=== PATIENT | female | born 1985 | race Caucasian/White ===

== ENCOUNTER 2023-12-10 13:59 | Emergency (ER) | payer BC ==
[2023-12-10 14:42] VITALS: BP 138/88; PULSE 94; RESP 18; TEMP 97.5; BMI 27.3
[2023-12-10] MEDS: SODIUM CHLORIDE 0.9% 500 ML INFUS.BAG IV ONE (15:44)
[2023-12-10 15:48] LABS: BASO % 0.3 % (0-2.0); EOS % 0.6 % (0-4.5); HEMATOCRIT 42.3 % (32.4-45.2); HEMOGLOBIN 14.7 GM/dL (10.7-15.3); LYMPH % 7.7 % (8-40); MCH 32.2 pg (25.7-33.7); MCHC 34.7 g/dl (32.0-36.0); MEAN CELL VOLUME 92.8 fl (80-96); MEAN PLT VOLUME 8.5 fl (7.5-11.1); MONO % 4.6 % (3.8-10.2); NEUT % 86.8 % (42.8-82.8); PLATELET COUNT 248 10^3/uL (134-434); RBC 4.56 M/mm3 (3.60-5.2); RDW 12.6 % (11.6-15.6); WHITE BLOOD COUNT 11.6 K/mm3 (4.0-10.0)
[2023-12-10 15:51] LABS: PH,URINE 7.5 (5.0-8.0); URINE APPEARANCE CLEAR; URINE BILIRUBIN NEGATIVE (NEGATIVE); URINE COLOR YELLOW; URINE GLUCOSE (UA) NEGATIVE (NEGATIVE); URINE KETONE NEGATIVE (NEGATIVE); URINE LEUK ESTERASE NEGATIVE (NEGATIVE); URINE NITRITE NEGATIVE (NEGATIVE); URINE PROTEIN NEGATIVE (NEGATIVE); URINE UROBILINOGEN 0.2 mg/dL (0.2-1.0)
[2023-12-10 15:54] LABS: HCG,QUALITATIVE URINE Negative
[2023-12-10 15:55] LABS: INR 1.03 (0.83-1.09); PROTHROMBIN TIME (PATIENT) 11.6 SEC (9.7-13.0)
[2023-12-10 15:57] LABS: ACTIVATED PTT 36.4 SECONDS (25.2-36.5)
[2023-12-10 16:12] LABS: POTASSIUM 3.9 mmol/L (3.5-5.1)
[2023-12-10 16:14] LABS: CALCIUM 9.4 mg/dL (8.5-10.1)
[2023-12-10 16:15] LABS: ALBUMIN 4.4 g/dl (3.4-5.0); BLOOD UREA NITROGEN 8.1 mg/dL (7-18); MAGNESIUM 2.2 mg/dL (1.8-2.4)
[2023-12-10 16:18] LABS: CREATININE 0.7 mg/dL (0.55-1.3); PHOSPHOROUS 2.2 mg/dL (2.5-4.9)
[2023-12-10 16:19] LABS: BILIRUBIN,TOTAL 0.6 mg/dL (0.2-1); TOT PROT 8.1 g/dl (6.4-8.2)
== END 2023-12-10 17:29 | disposition home or self-care (01) ==
LOC: JER 13:59
DX: R42 Dizziness and giddiness (principal); R61 Generalized hyperhidrosis; R19.7 Diarrhea, unspecified
CPT/HCPCS: 36415; 71046-TC-FY; 80053; 81003; 83735; 84100; 84484; 84703; 85025; 85610; 85730; 87086; 93005; 93010; 99285-25